=== PATIENT | female | born 1940 | race African-American/Black ===

== ENCOUNTER 2019-04-29 08:37 | Emergency (ER) | payer MEDICARE ==
[~2019-04-29] VITALS: Ht 170.2 cm; Wt 57.0 kg
[2019-04-29 11:07] LABS: HEMATOCRIT. 31.8 % (36.0-48.0); MEAN CORPUSCULAR HEMOGLOBIN 21.5 pg (28.0-32.0); MEAN CORPUSCULAR VOLUME 68.3 fL (81.0-99.0); MEAN PLATELET VOLUME 7.5 fl (7.4-10.4); PLATELET 234 x1000/uL (130-400); RED BLOOD CELL COUNT 4.65 mill/uL (4.2-5.4); RED CELL DISTRIBUTION WIDTH 16.5 % (11.6-14.6)
[2019-04-29 11:12] LABS: CHLORIDE 114 mEq/L (98-107)
[2019-04-29 11:21] LABS: PARTIAL THROMBOPLASTIN TIME 47.4 sec (23.4-31.0); PROTHROMBIN TIME 51.5 sec (9.6-11.0)
[2019-04-29 11:23] LABS: INR 5.4
[2019-04-29 11:44] LABS: PLATELET ESTIMATE NORMAL
[2019-04-29 13:06] VITALS: BP 136/59
== END 2019-04-29 13:08 | disposition home or self-care (01) ==
LOC: ER 08:54
DX: R79.1 Abnormal coagulation profile (principal); J44.9 Chronic obstructive pulmonary disease, unspecified; I48.91 Unspecified atrial fibrillation; Z88.8 Allergy status to other drugs, medicaments and biological substances; Z86.73 Personal history of transient ischemic attack (TIA), and cerebral infarction without residual deficits
CPT/HCPCS: 36415; 71045; 83735; 83880; 84484; 93005; 93971; 99284

== ENCOUNTER 2023-03-19 15:11 | Emergency (ER) | payer MEDICARE, OTHER ==
[~2023-03-19] VITALS: Ht 170.2 cm; Wt 50.8 kg
[2023-03-19 15:38] VITALS: O2SAT 94
[2023-03-19 16:40] LABS: HEMATOCRIT. 30.6 % (36.0-48.0); HEMOGLOBIN. 9.4 g/dL (12.0-16.0); MEAN CORPUSCULAR HEMOGLOBIN 20.9 pg (28.0-32.0); MEAN CORPUSCULAR VOLUME 67.8 fL (81.0-99.0); MEAN PLATELET VOLUME 7.6 fl (7.4-10.4); PLATELET 197 x1000/uL (130-400); RED BLOOD CELL COUNT 4.51 mill/uL (4.2-5.4); RED CELL DISTRIBUTION WIDTH 16.7 % (11.6-14.6)
[2023-03-19 16:47] LABS: CHLORIDE 111 mEq/L (98-107)
[2023-03-19 16:58] LABS: INR 2.3; PROTHROMBIN TIME 23.3 sec (9.6-11.0)
[2023-03-19 17:42] LABS: PLATELET ESTIMATE NORMAL
[2023-03-19 18:30] VITALS: BP 139/81; PULSE 63; RESP 16; TEMP 98.5
== END 2023-03-19 19:07 | disposition home or self-care (01) ==
LOC: ER 15:11
DX: R42 Dizziness and giddiness (principal); D64.9 Anemia, unspecified; Z20.822 Contact with and (suspected) exposure to COVID-19
CPT/HCPCS: 99285; 70450; 71045; 87426; 80053; 83880; 85025; 85610; 84484; 36415; 93005; C9803